=== PATIENT | male | born 1940 | race Caucasian/White ===

== ENCOUNTER → 2019-02-20 | Outpatient (CLI) | payer OTHER ==
[~2019-02-20] MED LIST: BALSALAZIDE DI750 M1 PO; CARDIZEM CD240 MG PO; COUMADIN 2 MG TA2 M1 PO; FLECAINIDE ACET50 M1 PO; PRINIVIL20 MG PO
[2019-02-20 08:33] LABS: ABSOLUTE EOSINOPHILS 0.3 thou/uL (0.0-0.7); ABSOLUTE LYMPHOCYTES 0.6 thou/uL (0.8-5.3); ABSOLUTE MONOCYTES 0.5 thou/uL (0.0-1.2); ABSOLUTE NEUTROPHILS 3.1 thou/uL (1.6-8.1); EOSINOPHILS 5.8 %; HEMATOCRIT 43.5 % (42.0-52.0); MCH 33.4 pg (26.0-34.0); MCHC 34.5 g/dL (28.0-37.0); MCV 96.8 fL (80.0-100.0); MONOCYTES 11.7 %; MPV 7.6 fl. (7.2-11.1); NUCLEATED RBCS 0 /100WBC; PLATELET COUNT* 176 thou/uL (150-400); POLYS 67.5 %; RBC 4.49 mil/uL (4.50-6.00); RDW-CV 13.5 % (10.5-14.5); WBC 4.5 thou/uL (4.0-11.0)
[2019-02-20 08:45] LABS: ALBUMIN 3.8 g/dL (3.4-5.0); CALCIUM 8.9 mg/dL (8.5-10.1); CREATININE 1.2 mg/dL (0.6-1.3); POTASSIUM 3.8 mmol/L (3.5-5.1); TOTAL BILIRUBIN 0.6 mg/dL (<0.1-1.0); TOTAL PROTEIN 7.1 g/dL (6.4-8.2)
[2019-02-20 10:07] LABS: ESR (SEDRATE) 2 mm/hr (0-20)
== END ==
LOC: M.LAB 08:13
PROVIDERS: Nurse Practitioner Adult Health
DX: K51.018 Ulcerative (chronic) pancolitis with other complication (principal)

== ENCOUNTER → 2021-03-23 | Outpatient (CLI) | payer OTHER ==
[~2021-03-23] MED LIST changes: +BYSTOLIC 5 MG5 MG PO; +ELIQUIS5 MG PO; +FLOMAX0.4 MG PO; +NITROSTAT0.4 M1 SUBLING; +ZESTORETIC 20-1 EACH PO
--- NOTE | 2021-03-23 15:57 | 2DMMODE ---
[place] [address] 2 D/M-MODE ECHOCARDIOGRAM Name: REY NESS Room: [facility]#: [id number] Admission: 03/23/21 Attend Phys: Cheyenne Carvajal RN Discharge: Date of : 44 Date of Service: 03/23/21 1557 Report #: [id number] THIS REPORT FOR: cc: Marino Velez Christopher DO Blick, David R. MD [facility] ~ APPROVED REPORT Study performed: 03/23/2021 13:38:38 EXAM: Comprehensive 2D, Doppler, and color-flow Echocardiogram Patient Location: Out-Patient BSA: 2.21 HR: 59 bpm BP: 116/60 mmHg Other Information Study Quality: Good Indications Murmur 2D Dimensions IVSd: 11.73 (7-11mm) LVOT Diam: 21.23 (18-24mm) LVDd: 44.56 mm PWd: 9.94 (7-11mm) Ascending Ao: 40.68 (22-36mm) LVDs: 25.12 (25-40mm) Aortic Root: 34.76 mm Volumes Left Atrial Volume (Systole) LA ESV Index: 19.50 mL/m2 Aortic Valve AoV Peak Ermias.: 1.85 m/s AO Peak Gr.: 13.62 mmHg LVOT Max P.22 mmHg AO Mean Gr.: 6.66 mmHg LVOT Mean P.95 mmHg LVOT Max V: 1.67 m/s AO V2 VTI: 36.00 cm LVOT Mean V: 1.00 m/s JANIE (VTI): 3.38 cm2 LVOT V1 VTI: 34.39 cm AI Fleming: 1.91 m/s2 AI PHT: 584.15 [place] [address] 2 D/M-MODE ECHOCARDIOGRAM Name: REY NESS Room: [facility]#: [id number] Admission: 03/23/21 Attend Phys: Cheyenne Carvajal RN Discharge: Date of : 44 Date of Service: 03/23/21 1557 Report #: [id number] Mitral Valve E/A Ratio: 0.94 MV Decel. Time: 227.91 ms MV E Max Ermias.: 0.77 m/s MV PHT: 66.09 ms MVA (PHT): 3.33 cm2 TDI E/Lateral E': 7.00 E/Medial E': 7.70 Medial E' Ermias.: 0.10 m/s Lateral E' Ermias.: 0.11 m/s Pulmonary Valve PV Peak Ermias.: 1.19 m/s PV Peak Gr.: 5.62 mmHg Tricuspid Valve RAP Estimate: 5.00 mmHg TR Peak Gr.: 25.98 mmHg RVSP: 30.98 mmHg PA Pressure: 30.98 mmHg Left Ventricle The left ventricle is normal size. There is normal LV segmental wall motion. There is normal left ventricular wall thickness. Left ventricular systolic function is normal. The left ventricular ejection fraction is within the normal range. LVEF is 55-60%. Grade I - abnormal relaxation pattern. Right Ventricle The right ventricle is normal size. The right ventricular systolic function is normal. Atria The left atrium size is normal. The right atrium size is normal. Aortic Valve The Aortic valve is sclerotic. Mild aortic regurgitation. There is no aortic valvular stenosis. Mitral Valve The mitral valve is normal in structure. There is no mitral valve regurgitation noted. No evidence of mitral valve stenosis. Tricuspid Valve The tricuspid valve is normal in structure. Mild [place] [address] 2 D/M-MODE ECHOCARDIOGRAM Name: REY NESS Room: [facility]#: [id number] Admission: 03/23/21 Attend Phys: Cheyenne Carvajal RN Discharge: Date of : 44 Date of Service: 03/23/21 1557 Report #: [id number] Pulmonic Valve Pulmonic valve is not well visualized. Mild pulmonic regurgitation. Great Vessels The aortic root is normal in size. The ascending aorta is mildly dilated. IVC is normal in size and collapses >50% with inspiration. Pericardium There is no pericardial effusion. <Conclusion> LVEF is 55-60%. The Aortic valve is sclerotic. Mild aortic regurgitation. Mild tricuspid regurgitation. The ascending aorta is mildly dilated. <ELECTRONICALLY SIGNED> By: Phillip Fields MD, [facility] 03/23/21 1557 1557 1557 Phillip Fields MD, FACC /INF
== END ==
LOC: M.CRD 03-18 13:00
PROVIDERS: ATTEND Registered Nurse
DX: I08.8 Other rheumatic multiple valve diseases (principal); R01.1 Cardiac murmur, unspecified; I48.0 Paroxysmal atrial fibrillation; I10 Essential (primary) hypertension